=== PATIENT | female | born 1990 | race Caucasian/White ===

== ENCOUNTER 2017-09-17 16:10 | Emergency (ER) | payer OTHER ==
[2017-09-17 16:26] VITALS: BP 127/98
== END 2017-09-17 17:20 | disposition left against medical advice (07) ==
LOC: ED 16:10
DX: Z53.21 Procedure and treatment not carried out due to patient leaving prior to being seen by health care provider (principal)

== ENCOUNTER 2020-10-04 21:30 | Emergency (ER) | payer OTHER, SELFPAY ==
[~2020-10-04] VITALS: Ht 154.9 cm; Wt 76.2 kg
[2020-10-04 21:35] VITALS: Ht 154.9 cm; Wt 76.2 kg
[2020-10-04 23:24] VITALS: BP 137/91
== END 2020-10-04 23:24 | disposition home or self-care (01) ==
LOC: ED 21:30
DX: R05 Cough (principal); R68.83 Chills (without fever); M79.10 Myalgia, unspecified site; Z20.828 Contact with and (suspected) exposure to other viral communicable diseases
CPT/HCPCS: U0003